=== PATIENT | male | born 1985 | race Caucasian/White ===

== ENCOUNTER 2019-10-28 18:04 | Inpatient (IN) | payer OTHER ==
[2019-10-28 18:37] VITALS: BMI 25.5
--- NOTE | 2019-10-28 22:41 | HP ---
COWS - Scale Resting Pulse: 0= [place] 80 or Below Sweatin=Flushed/Facial Moisture Restless Observation: 0= Sits Still Pupil Size: 0= Normal to Room Light Bone or Joint Aches: 4=Acute Joint/Muscle Pain Runny Nose/ Eye Tearin= Runny Nose/Eyes GI Upset > 30mins: 3= Vomiting/Diarrhea (vomiting x 5, diarrhea x 6) Tremor Observation: 4= Gross Tremor/Twitching Yawning Observation: 1= 1-2x During Session Anxiety or Irritability: 4=Extreme Anxiety Goose Flesh Skin: 3=Piloerection COWS Score: 23 CIWA Score Nausea/Vomitin (vomiting x 5) Muscle Tremors: 5 Anxiety: 3 Agitation: 3 Paroxysmal Sweats: 3 Orientation: 2-Disoriented Date<2 days Tacttile Disturbances: 0-None Auditory Disturbances: 0-None Visual Disturbances: 0-None Headache: 1-Very Mild CIWA-Ar Total Score: 20 - Admission Criteria OASAS Guidelines: Admission for Medically Managed Detox: Requires at least one of the followin. CIWA greater than 12 2. Seizures within the past 24 hours 3. Delirium tremens within the past 24 hours 4. Hallucinations within the past 24 hours 5. Acute intervention needed for co occurring medical disorder 6. Acute intervention needed for co occurring psychiatric disorder 7. Severe withdrawal that cannot be handled at a lower level of care (continued vomiting, continued diarrhea, abnormal vital signs) requiring intravenous medication and/or fluids 8. Admission ROS [facility] Chief Complaint: Heroin, benzodiazepine and alcohol withdrawal symptoms Allergies/Adverse Reactions: Allergies Allergy/AdvReac Type Severity Reaction Status Date / Time No Known Allergies Allergy Verified 10/28/19 22:34 History of Present Illness: 34 years old male with a long history of alcohol dependence, 10 years of benzodiazepine dependence and 12 years of heroin dependence is seeking admission to detox. This is his 1st admission to [facility] and his last detox was at [facility]. He uses 20 bags of heroin , drinks 2-3 pints of vodka and takes 7mg -10mg of Xanax or klonopin daily. He reports medical history of Hep. C, psych history of depression, anxiety and ADHD. He denies suicide attempt / suicidal ideation at this time. He is unemployed, lives alone and denies legal issues. 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 He was referred from [facility]. Exam Limitations: Clinical Condition (actute withdrawal), Intoxication - Ebola screening Have you traveled outside of the country in the last 21 days: No Have you had contact with anyone from an Ebola affected area: No Have you been sick,other than usual withdrawal symptoms: No Do you have a fever: No - Review of Systems Constitutional: Chills, Loss of Appetite, Malaise, Night Sweats, Changes in sleep EENT: reports: Nose Congestion Respiratory: reports: No Symptoms reported Cardiac: reports: No Symptoms Reported GI: reports: Diarrhea, Nausea, Poor Fluid Intake, Vomiting, Abdominal cramping : reports: No Symptoms Reported Musculoskeletal: reports: No Symptoms Reported, Back Pain, Joint Pain, Muscle P ain Integumentary: reports: Dryness, Flushing Neuro: reports: Headache, Tremors Endocrine: reports: No Symptoms Reported Hematology: reports: No Symptoms Reported Psychiatric: reports: Agitated, Anxious, Depressed Other Systems: Reviewed and Negative Patient History - Patient Medical History Hx Anemia: No Hx Asthma: No Hx Chronic Obstructive Pulmonary Disease (COPD): No Hx Cancer: No Hx Cardiac Disorders: No Hx Congestive Heart Failure: No Hx Hypertension: No Hx Hypercholesterolemia: No Hx Pacemaker: No HX Cerebrovascular Accident: No Hx Seizures: No Hx Dementia: No Hx Diabetes: No Hx Gastrointestinal Disorders: No Hx Liver Disease: No Hx Genitourinary Disorders: No Hx Sexually Transmitted Disorders: No Hx Renal Disease (ESRD): No Hx Thyroid Disease: No Hx Human Immunodeficiency Virus (HIV): No (Negative 2019) Hx Hepatitis C: Yes Hx Depression: Yes (+ anxiety + ADHD) Hx Suicide Attempt: No (Denies suicidal ideation at this time) Hx Bipolar Disorder: Yes Hx Schizophrenia: No - Patient Surgical History Past Surgical History: Yes Hx Neurologic Surgery: No Hx Cataract Extraction: No Hx Cardiac Surgery: No Hx Lung Surgery: Yes (Pneumothorax 2015) Hx Abdominal Surgery: No Hx Appendectomy: No Hx Cholecystectomy: No Hx Genitourinary Surgery: No Hx Orthopedic Surgery: No Anesthesia Reaction: No - PPD History Previous Implant?: Yes Documented Results: Negative w/o proof Implanted On Prior R Admission?: No PPD to be Administered?: Yes - Reproductive History Patient is a Female of Child Bearing Age (11 -55 yrs old): No (Male) - Smoking Cessation Smoking history: Former smoker Have you smoked in the past 12 months: No Hx Chewing Tobacco Use: No Initiated information on smoking cessation: No - Substance & Tx. History Hx Alcohol Use: Yes Hx Substance Use: Yes Substance Use Type: Alcohol, Cocaine, Heroin, Marijuana Hx Substance Use Treatment: Yes ([facility].) - Substances abused Alcohol Substance route: Oral Frequency: Daily Amount used: 2-3 pints of vodka Age of first use: 7 Date of last use: 10/28/19 Alprazolam (Xanax) Substance route: Oral Frequency: Daily Amount used: 7mg - 10mg Age of first use: 24 Date of last use: 10/27/19 Heroin Substance route: Injection Frequency: Daily Amount used: 20 bags Age of first use: 24 Date of last use: 10/28/19 Admission Physical Exam [facility] - Vital Signs Vital Signs: Vital Signs - 24 hr 10/28/19 18:35 Temperature 97.5 F L Pulse Rate 70 Respiratory 18 Rate Blood Pressure 117/81 - Physical General Appearance: Yes: Severe Distress, Tremorous, Irritable, Sweating, Anxious HEENTM: Yes: Within Normal Limits Respiratory: Yes: Lungs Clear, Normal Breath Sounds, No Respiratory Distress Neck: Yes: Within Normal Limits Breast: Yes: Breast Exam Deferred Cardiology: Yes: Within Normal Limits Abdominal: Yes: Normal Bowel Sounds Genitourinary: Yes: Within Normal Limits Back: Yes: Normal Inspection Musculoskeletal: Yes: Back pain, Muscle Pain Extremities: Yes: Tremors, Erythema (face) Neurological: Yes: Within Normal Limits Integumentary: Yes: Warm, Rash (face and bilateral hands and legs) Lymphatic: Yes: Within Normal Limits Cleared for Admission [facility] - Detox or Rehab [facility] Level of Care: Medically Managed Detox Regimen/Protocol: Methadone/Valium Claeared for Rehab Admission: No Breathalyzer - Breathalyzer Breathalyzer: 0 Urine Drug Screen - Test Device Lot number: [id number] Expiration date: 09/20/21 - Control Is test valid?: Yes - Results Drug screen NEGATIVE: No Urine drug screen results: THC-Marijuana, JOE-Cocaine, FEN-Fentanyl, MOP- Opiates, MTD-Methadone, BZO-Benzodiazepines Inpatient Rehab Admission - Rehab Decision to Admit Inpatient rehab admission?: No
[2019-10-28] MEDS ORDERED: ACETAMINOPHEN 325 MG TABLET (FP) PO PRN (22:50)
[2019-10-28] MEDS ORDERED: METHADONE HCL 10 MG TABLET (FOR DETOX USE ONLY) PO ONE (22:50)
[2019-10-28] MEDS ORDERED: NICOTINE POLACRILEX 2 MG GUM BUC PRN (22:50)
[2019-10-28] MEDS ORDERED: MENTHOL/PHENOL 1 EACH UD MM PRN (22:50)
[2019-10-28] MEDS ORDERED: MAGNESIUM HYDROX 2400MG/30ML ORAL SUSPENSION 30 ML CUP PO PRN (22:50)
[2019-10-28] MEDS ORDERED: ONDANSETRON *ODT* 4 MG TABLET SL PRN (22:50)
[2019-10-28] MEDS ORDERED: MAG HYDROX/AL HYDROX/SIMETH 30 ML UNIT-DOSE CUP PO PRN (22:50)
[2019-10-28] MEDS ORDERED: MAGNESIUM CITRATE 300 ML BOTTLE PO PRN (22:50)
[2019-10-28] MEDS: diazePAM 5 MG TABLET PO SCH (23:42)
[2019-10-29] MEDS: diazePAM 5 MG TABLET PO SCH ×4 (05:12→22:03)
--- NOTE | 2019-10-29 09:02 | EKG ---
Test Reason : Blood Pressure : / mmHG Vent. Rate : 055 BPM Atrial Rate : 055 BPM P-R Int : 174 ms QRS Dur : 124 ms QT Int : 418 ms P-R-T Axes : 026 040 034 degrees QTc Int : 399 ms SINUS BRADYCARDIA NON-SPECIFIC INTRA-VENTRICULAR CONDUCTION DELAY NO PREVIOUS ECGS AVAILABLE Confirmed by AGUSTIN VALLECILLO MD ([id number]) on 10/29/2019 9:01:33 AM Referred By: Confirmed By:AGUSTIN VALLECILLO MD
[2019-10-29] MEDS ORDERED: METHADONE HCL 5 MG TABLET (FOR DETOX USE ONLY) ONE (09:20)
[2019-10-29] MEDS ORDERED: METHADONE HCL 10 MG TABLET (FOR DETOX USE ONLY) ONE (09:20)
[2019-10-29] MEDS ORDERED: METHADONE (DETOX) 20 MG, METHADONE (DETOX) 5 MG PO ONE (10:00)
[2019-10-29] MEDS: NICOTINE 14 MG/24 HOURS TOPICAL PATCH TD SCH (10:22)
[2019-10-29] MEDS: PRENATAL VITAMINS W/ FOLIC ACID TABLET (FP) PO SCH (10:23)
[2019-10-29] MEDS: BISMUTH SUBSALICYLATE 524 MG/30 ML UD PO PRN (10:25)
[2019-10-29 10:39] LABS: HEMATOCRIT 33.2 % (35.4-49); HEMOGLOBIN 11.1 GM/dL (11.7-16.9); MCH 28.3 pg (25.7-33.7); MCHC 33.4 g/dl (32.0-35.9); MEAN CELL VOLUME 84.6 fl (80-96); PLATELET COUNT 250 K/MM3 (134-434); RBC 3.92 M/mm3 (4.00-5.60); RDW 13.2 % (11.9-15.9); WHITE BLOOD COUNT 4.8 K/mm3 (4.0-10.0)
[2019-10-29 11:01] LABS: ALBUMIN 3.2 g/dl (3.4-5.0); BLOOD UREA NITROGEN 16.7 mg/dL (7-18); CALCIUM 8.7 mg/dL (8.5-10.1); CREATININE 0.8 mg/dL (0.55-1.3); POTASSIUM 4.3 mmol/L (3.5-5.1)
[2019-10-29 11:04] LABS: BILIRUBIN,TOTAL 0.3 mg/dL (0.2-1); TOT PROT 6.4 g/dl (6.4-8.2)
[2019-10-29] MEDS: diazePAM 5 MG TABLET PO PRN ×3 (13:12→23:08)
[2019-10-29] MEDS: METHOCARBAMOL 500 MG TABLET PO PRN ×2 (13:13→18:47)
--- NOTE | 2019-10-29 13:39 | PN ---
[facility] CIWA - CIWA Score Nausea/Vomitin Muscle Tremors: 3 Anxiety: 3 Agitation: 3 Paroxysmal Sweats: 1-Minimal Palms Moist Orientation: 0-Oriented Tacttile Disturbances: 1-Very Mild Itch/Numbness Auditory Disturbances: 0-None Visual Disturbances: 0-None Headache: 2-Mild CIWA-Ar Total Score: 16 BHS COWS - Scale Resting Pulse: 0= [place] 80 or Below Sweatin= No chills or Flushing Restless Observation: 3= Extraneous Movement Pupil Size: 1= Pupils >than Normal Bone or Joint Aches: 2= Severe Diffuse Aches Runny Nose/ Eye Tearin= Runny Nose/Eyes GI Upset > 30mins: 3= Vomiting/Diarrhea Tremor Observation of Outstretched Hands: 2= Slight Tremor Visible Yawning Observation: 1= 1-2x During Session Anxiety or Irritability: 2=Irritable/Anxious Goose Flesh Skin: 0=Smooth Skin COWS Score: 16 [facility] Progress Note (SOAP) Subjective: alert,irritable,anxious,interrupted sleep,tremor,pain in the body and back,vomiting,diarrhea Objective: 10/29/19 13:41 Vital Signs Temperature 98.4 F 10/29/19 12:53 Pulse Rate 75 10/29/19 12:53 Respiratory Rate 17 10/29/19 12:53 Blood Pressure 111/70 10/29/19 12:53 O2 Sat by Pulse Oximetry (%) 99 10/29/19 12:53 10/29/19 13:41 Laboratory Last Values WBC 4.8 K/mm3 (4.0-10.0) 10/29/19 08:10 RBC 3.92 M/mm3 (4.00-5.60) L 10/29/19 08:10 Hgb 11.1 GM/dL (11.7-16.9) L 10/29/19 08:10 Hct 33.2 % (35.4-49) L 10/29/19 08:10 MCV 84.6 fl (80-96) 10/29/19 08:10 MCH 28.3 pg (25.7-33.7) 10/29/19 08:10 MCHC 33.4 g/dl (32.0-35.9) 10/29/19 08:10 RDW 13.2 % (11.9-15.9) 10/29/19 08:10 Plt Count 250 K/MM3 (134-434) 10/29/19 08:10 MPV 9.0 fl (7.5-11.1) 10/29/19 08:10 Sodium 142 mmol/L (136-145) 10/29/19 08:10 Potassium 4.3 mmol/L (3.5-5.1) 10/29/19 08:10 Chloride 109 mmol/L (98-107) H 10/29/19 08:10 Carbon Dioxide 28 mmol/L (21-32) 10/29/19 08:10 Anion Gap 5 MMOL/L (8-16) L 10/29/19 08:10 BUN 16.7 mg/dL (7-18) 10/29/19 08:10 Creatinine 0.8 mg/dL (0.55-1.3) 10/29/19 08:10 Est GFR (CKD-EPI)AfAm 134.14 10/29/19 08:10 Est GFR (CKD-EPI)NonAf 115.74 10/29/19 08:10 Random Glucose 100 mg/dL (74-106) 10/29/19 08:10 Calcium 8.7 mg/dL (8.5-10.1) 10/29/19 08:10 Total Bilirubin 0.3 mg/dL (0.2-1) 10/29/19 08:10 AST 21 U/L (15-37) 10/29/19 08:10 ALT 21 U/L (13-61) 10/29/19 08:10 Alkaline Phosphatase 87 U/L (45-117) 10/29/19 08:10 Total Protein 6.4 g/dl (6.4-8.2) 10/29/19 08:10 Albumin 3.2 g/dl (3.4-5.0) L 10/29/19 08:10 Syphilis Serology Non-reactive (NONREACTIVE) 10/29/19 08:10 Assessment: 10/29/19 13:42 withdrawal symptom Plan: continue detox methadone and valium regimen
--- NOTE | 2019-10-29 14:47 | EKG ---
Test Reason : Blood Pressure : / mmHG Vent. Rate : 059 BPM Atrial Rate : 059 BPM P-R Int : 170 ms QRS Dur : 126 ms QT Int : 422 ms P-R-T Axes : 030 053 045 degrees QTc Int : 417 ms SINUS BRADYCARDIA RIGHT BUNDLE BRANCH BLOCK ABNORMAL ECG WHEN COMPARED WITH ECG OF 28-OCT-2019 22:08, NO SIGNIFICANT CHANGE WAS FOUND Confirmed by AGUSTIN VALLECILLO MD ([id number]) on 10/29/2019 2:47:27 PM Referred By: Confirmed By:AGUSTIN VALLECILLO MD
--- NOTE | 2019-10-29 15:06 | CONSULT ---
[facility] Psychiatric Consult - Data Date of interview: 10/29/19 Admission source: [facility] Identifying data: Patient is a 34 year old single male, without children, unemployed, domiciled, and is supported with unemployment benefits. This is patient's first admission to [facility]. Patient admitted to for alcohol, opiate, and benzodizapine dependence. Substance Abuse History: Smoking Cessation. Smoking history: Former smoker. Have you smoked in the past 12 months: No. Hx Chewing Tobacco Use: No. Initiated information on smoking cessation: No. - Substance & Tx. History. Hx Alcohol Use: Yes. Hx Substance Use: Yes. Substance Use Type: Alcohol, Cocaine, Heroin, Marijuana. Hx Substance Use Treatment: Yes ([facility].). - Substances abused. Alcohol. Substance route: Oral. Frequency: Daily. Amount used: 2-3 pints of vodka. Age of first use: 7. Date of last use: 10/28/19. Alprazolam (Xanax). Substance route: Oral. Frequency: Daily. Amount used: 7mg - 10mg. Age of first use: 24. Date of last use: 10/27/19. Heroin. Substance route: Injection. Frequency: Daily. Amount used: 20 bags. Age of first use: 24. Date of last use: 10/28/19 Medical History: Pneumothorax 2015 Psychiatric History: Mr. Haynes reports history of three psychiatric hospitalizations at [facility] in [facility], most recently last year due to depression. Diagnosis of MDD + Anxiety disorder + PTSD. Patient is totally lost in follow up care. States that he receives psychotropic medications from detox/ rehab facilites. Mr. Haynes recently completed [facility] re[facility] last month and was treated and discharge with Effexor 300mg XL + Gabapentin 600mg TID + Adderall 30mg daily. Patient states that he has been off all medications for approximately three weeks. No reported history of suicide attempt. At present patient reports feeling anxious and sad. Physical/Sexual Abuse/Trauma History: denies. Mental Status Exam - Mental Status Exam Alert and Oriented to: Time Cognitive Function: Good Patient Appearance: Well Groomed Mood: Withdrawn Affect: Mood Congruent Patient Behavior: Fatigued, Cooperative Speech Pattern: Appropriate Voice Loudness: Normal Thought Process: Goal Oriented Thought Disorder: Not Present Hallucinations: Denies Suicidal Ideation: Denies Homicidal Ideation: Denies Insight/Judgement: Poor Sleep: Fair Appetite: Fair Muscle strength/Tone: Normal Gait/Station: Normal Psychiatric Findings - Problem List ([place] 1, 2,3) (1) Alcohol use disorder Current Visit: Yes Status: Acute (2) Cocaine dependence Current Visit: Yes Status: Acute (3) Opioid dependence Current Visit: Yes Status: Acute (4) Substance induced mood disorder Current Visit: Yes Status: Acute (5) Anxiety disorder Current Visit: Yes Status: Chronic (6) History of depression Current Visit: No Status: Chronic - Initial Treatment Plan Initial Treatment Plan: Psychoeducation provided. Detoxification in progress. Will order Gabapentin 300mg TID. Will not resume effexor at this time due to noncompliance. Patient in agreement with plan. Benefits and side effects discussed. Verbal consent given.
[2019-10-29] MEDS: IBUPROFEN 400 MG TABLET (FP) PO PRN (15:19)
[2019-10-29] MEDS: GABAPENTIN 300 MG CAPSULE PO SCH ×2 (15:25→21:43)
[2019-10-29] MEDS: cloNIDine HCL 0.1 MG TABLET PO PRN ×2 (17:19→23:09)
[2019-10-29] MEDS: ACETAMINOPHEN 325 MG TABLET (FP) PO PRN (18:45)
[2019-10-29] MEDS: THIAMINE HCL 100 MG TABLET (FP) PO SCH (21:42)
[2019-10-29] MEDS: MELATONIN 5 MG TABLETS PO SCH (21:43)
[2019-10-30] MEDS: IBUPROFEN 400 MG TABLET (FP) PO PRN ×4 (00:45→22:22)
[2019-10-30] MEDS: diazePAM 5 MG TABLET PO PRN ×4 (04:12→19:27)
[2019-10-30] MEDS: ACETAMINOPHEN 325 MG TABLET (FP) PO PRN ×3 (04:15→18:30)
[2019-10-30] MEDS: GABAPENTIN 300 MG CAPSULE PO SCH ×3 (07:06→22:17)
[2019-10-30] MEDS: diazePAM 5 MG TABLET PO SCH ×3 (07:07→22:17)
[2019-10-30] MEDS: METHOCARBAMOL 500 MG TABLET PO PRN (07:11)
[2019-10-30] MEDS ORDERED: BENZOCAINE 20 % GEL TUBE MM PRN (09:50)
[2019-10-30] MEDS ORDERED: METHADONE HCL 10 MG TABLET (FOR DETOX USE ONLY) PO ONE (10:00)
[2019-10-30] MEDS: PRENATAL VITAMINS W/ FOLIC ACID TABLET (FP) PO SCH (10:35)
[2019-10-30] MEDS: NICOTINE 14 MG/24 HOURS TOPICAL PATCH TD SCH (10:35)
[2019-10-30] MEDS: METHOCARBAMOL 750 MG TABLET PO PRN ×2 (14:16→22:21)
--- NOTE | 2019-10-30 16:35 | PN ---
S CIWA - CIWA Score Nausea/Vomitin-No Nausea/No Vomiting Muscle Tremors: 3 Anxiety: 3 Agitation: 1-Slight > Activity Paroxysmal Sweats: No Perspiration Orientation: 0-Oriented Tacttile Disturbances: 1-Very Mild Itch/Numbness Auditory Disturbances: 1-Very Mild Visual Disturbances: 0-None Headache: 0-None Present CIWA-Ar Total Score: 9 BHS COWS - Scale Resting Pulse: 0= [place] 80 or Below Sweatin= Chills/Flushing Restless Observation: 1= Difficult to Sit Still Pupil Size: 0= Normal to Room Light Bone or Joint Aches: 2= Severe Diffuse Aches Runny Nose/ Eye Tearin= None GI Upset > 30mins: 0= None Tremor Observation of Outstretched Hands: 2= Slight Tremor Visible Yawning Observation: 1= 1-2x During Session Anxiety or Irritability: 2=Irritable/Anxious Goose Flesh Skin: 0=Smooth Skin COWS Score: 9 BHS Progress Note (SOAP) Subjective: Anxious, Tremors, Anxious. Objective: Patient A & O X 3, Observed Ambulating on Detox Unit Unassisted. In No Acute Distress. 10/30/19 16:39 Vital Signs Temperature 97.1 F L 10/30/19 12:38 Pulse Rate 61 10/30/19 12:38 Respiratory Rate 17 10/30/19 12:38 Blood Pressure 109/71 10/30/19 12:38 O2 Sat by Pulse Oximetry (%) 100 10/30/19 12:38 Laboratory Tests 10/28/19 10/29/19 10/29/19 10:25 08:10 08:10 WBC 4.8 RBC 3.92 L Hgb 11.1 L Hct 33.2 L MCV 84.6 MCH 28.3 MCHC 33.4 RDW 13.2 Plt Count 250 MPV 9.0 Sodium Potassium Chloride Carbon Dioxide Anion Gap BUN Creatinine Est GFR (CKD-EPI)AfAm Est GFR (CKD-EPI)NonAf Random Glucose Calcium Total Bilirubin AST ALT Alkaline Phosphatase Total Protein Albumin Syphilis Serology Non-reactive COVID-19 (ASHISH) Not detected 10/29/19 08:10 WBC RBC Hgb Hct MCV MCH MCHC RDW Plt Count MPV Sodium 142 Potassium 4.3 Chloride 109 H Carbon Dioxide 28 Anion Gap 5 L BUN 16.7 Creatinine 0.8 Est GFR (CKD-EPI)AfAm 134.14 Est GFR (CKD-EPI)NonAf 115.74 Random Glucose 100 Calcium 8.7 Total Bilirubin 0.3 AST 21 ALT 21 Alkaline Phosphatase 87 Total Protein 6.4 Albumin 3.2 L Syphilis Serology COVID-19 (ASHISH) Lab Results noted. Assessment: 10/30/19 16:40 WITHDRAWAL SYMPTOMS. ANEMIA. Plan: Continue Detox. Increase Daily Oral Water Intake. Patient is currently receiving daily MVI containing B Vitamins and Iron while admitted for Detox.
[2019-10-30] MEDS: cloNIDine HCL 0.1 MG TABLET PO PRN (16:58)
[2019-10-30] MEDS: THIAMINE HCL 100 MG TABLET (FP) PO SCH (22:17)
[2019-10-30] MEDS: MELATONIN 5 MG TABLETS PO SCH (22:18)
[2019-10-31] MEDS: diazePAM 5 MG TABLET PO PRN ×4 (01:41→19:26)
[2019-10-31] MEDS: ACETAMINOPHEN 325 MG TABLET (FP) PO PRN ×3 (01:42→14:03)
[2019-10-31] MEDS: GABAPENTIN 300 MG CAPSULE PO SCH ×3 (05:12→22:07)
[2019-10-31] MEDS: diazePAM 5 MG TABLET PO SCH ×2 (05:12→17:00)
[2019-10-31] MEDS: IBUPROFEN 400 MG TABLET (FP) PO PRN ×3 (05:14→19:26)
[2019-10-31] MEDS: METHOCARBAMOL 750 MG TABLET PO PRN ×3 (05:17→22:10)
[2019-10-31] MEDS ORDERED: METHADONE HCL 10 MG TABLET (FOR DETOX USE ONLY) ONE (09:11)
[2019-10-31] MEDS ORDERED: METHADONE HCL 5 MG TABLET (FOR DETOX USE ONLY) ONE (09:11)
[2019-10-31] MEDS ORDERED: METHADONE (DETOX) 10 MG, METHADONE (DETOX) 5 MG PO ONE (10:00)
[2019-10-31] MEDS: PRENATAL VITAMINS W/ FOLIC ACID TABLET (FP) PO SCH (10:23)
[2019-10-31] MEDS: NICOTINE 14 MG/24 HOURS TOPICAL PATCH TD SCH (10:23)
--- NOTE | 2019-10-31 11:54 | PN ---
[facility] CIWA - CIWA Score Nausea/Vomitin-No Nausea/No Vomiting Muscle Tremors: 2 Anxiety: 1-Mildly Anxious Agitation: 1-Slight > Activity Paroxysmal Sweats: 2 Orientation: 0-Oriented Tacttile Disturbances: 0-None Auditory Disturbances: 0-None Visual Disturbances: 0-None Headache: 0-None Present CIWA-Ar Total Score: 6 BHS COWS - Scale Resting Pulse: 0= [place] 80 or Below Sweatin= Chills/Flushing Restless Observation: 0= Sits Still Pupil Size: 0= Normal to Room Light Bone or Joint Aches: 1= Mild Discomfort Runny Nose/ Eye Tearin= Nasal Congestion GI Upset > 30mins: 1= Stomach Cramp Tremor Observation of Outstretched Hands: 2= Slight Tremor Visible Yawning Observation: 0= None Anxiety or Irritability: 1=Feels Anxious/Irritable Goose Flesh Skin: 0=Smooth Skin COWS Score: 7 S Progress Note (SOAP) Subjective: Tremor, chills, body ache, a little vomiting, stomachache, interrupted sleep Objective: 10/31/19 12:29 Last Vital Signs Temp Pulse Resp BP Pulse Ox 97.5 F L 60 20 124/78 100 10/31/19 06:48 10/31/19 06:48 10/31/19 06:48 10/31/19 06:48 10/30/19 20:57 Laboratory Tests 10/28/19 10/29/19 10/29/19 10:25 08:10 08:10 WBC 4.8 RBC 3.92 L Hgb 11.1 L Hct 33.2 L MCV 84.6 MCH 28.3 MCHC 33.4 RDW 13.2 Plt Count 250 MPV 9.0 Sodium Potassium Chloride Carbon Dioxide Anion Gap BUN Creatinine Est GFR (CKD-EPI)AfAm Est GFR (CKD-EPI)NonAf Random Glucose Calcium Total Bilirubin AST ALT Alkaline Phosphatase Total Protein Albumin Syphilis Serology Non-reactive COVID-19 (ASHISH) Not detected 10/29/19 08:10 WBC RBC Hgb Hct MCV MCH MCHC RDW Plt Count MPV Sodium 142 Potassium 4.3 Chloride 109 H Carbon Dioxide 28 Anion Gap 5 L BUN 16.7 Creatinine 0.8 Est GFR (CKD-EPI)AfAm 134.14 Est GFR (CKD-EPI)NonAf 115.74 Random Glucose 100 Calcium 8.7 Total Bilirubin 0.3 AST 21 ALT 21 Alkaline Phosphatase 87 Total Protein 6.4 Albumin 3.2 L Syphilis Serology COVID-19 (ASHISH) Labs reviewed: mild anemia noted (on vitamin), mild hypoalbuminemia Assessment: 10/31/19 12:33 Withdrawal sxs Noted with mild anemia and hypoalbuminemia Plan: Continue detox Encourage PO water intake Mild anemia: Most likely due to alcoholism, continue vitamins, follow up with PCP for management Hypoalbuminemia: Encourage diet
[2019-10-31] MEDS: THIAMINE HCL 100 MG TABLET (FP) PO SCH (22:07)
[2019-10-31] MEDS: MELATONIN 5 MG TABLETS PO SCH (22:08)
[2019-11-01] MEDS: ACETAMINOPHEN 325 MG TABLET (FP) PO PRN (00:08)
[2019-11-01] MEDS: GABAPENTIN 300 MG CAPSULE PO SCH (05:17)
[2019-11-01] MEDS: METHOCARBAMOL 750 MG TABLET PO PRN (05:21)
[2019-11-01] MEDS ORDERED: diazePAM 5 MG TABLET PO ONE (06:00)
[2019-11-01] MEDS ORDERED: IBUPROFEN 400 MG TABLET (FP) PO PRN ×2 (08:30→08:39)
[2019-11-01] MEDS ORDERED: P-EPHED 60MG/TRIPROLIDI 2.5MG TABLET PO PRN (08:30)
[2019-11-01] MEDS ORDERED: hydrOXYzine PAMOATE 25 MG CAPSULE (FP) PO PRN (08:31)
[2019-11-01] MEDS ORDERED: LIDOCAINE VISCOUS 2% ORAL/TOP 100 ML BOTTLE MM PRN (08:54)
[2019-11-01] MEDS ORDERED: cloNIDine HCL 0.1 MG TABLET PO ONE (09:37)
[2019-11-01] MEDS ORDERED: METHADONE HCL 10 MG TABLET (FOR DETOX USE ONLY) PO ONE (10:00)
[2019-11-01] MEDS: PRENATAL VITAMINS W/ FOLIC ACID TABLET (FP) PO SCH (10:07)
[2019-11-01] MEDS: BISMUTH SUBSALICYLATE 524 MG/30 ML UD PO PRN (10:08)
[2019-11-01] MEDS: NICOTINE 14 MG/24 HOURS TOPICAL PATCH TD SCH (10:08)
[2019-11-01 10:20] VITALS: BP 133/80; PULSE 107; TEMP 97.5
--- NOTE | 2019-11-01 10:26 | PN ---
[facility] CIWA - CIWA Score Nausea/Vomitin-No Nausea/No Vomiting Muscle Tremors: None Anxiety: 1-Mildly Anxious Agitation: 0-Normal Activity Paroxysmal Sweats: No Perspiration Orientation: 0-Oriented Tacttile Disturbances: 0-None Auditory Disturbances: 0-None Visual Disturbances: 0-None Headache: 0-None Present CIWA-Ar Total Score: 1 S COWS - Scale Resting Pulse: 2= [place] 101-120 Sweatin= No chills or Flushing Restless Observation: 0= Sits Still Pupil Size: 0= Normal to Room Light Bone or Joint Aches: 0= None Runny Nose/ Eye Tearin= None GI Upset > 30mins: 0= None Tremor Observation of Outstretched Hands: 0= None Yawning Observation: 0= None Anxiety or Irritability: 1=Feels Anxious/Irritable Goose Flesh Skin: 0=Smooth Skin COWS Score: 3 [facility] Progress Note (SOAP) Subjective: alert,anxious Objective: 11/01/19 10:22 Vital Signs Temperature 97.5 F L 11/01/19 09:06 Pulse Rate 107 H 11/01/19 09:06 Respiratory Rate 19 11/01/19 09:06 Blood Pressure 133/80 11/01/19 09:06 O2 Sat by Pulse Oximetry (%) 98 11/01/19 09:06 Assessment: 11/01/19 10:23 patient has no withdrawal symptom Plan: stable for discharge today,follow up with after care program as arrangement
--- NOTE | 2019-11-01 10:31 | DS ---
[facility] Detox Discharge Summary Admission Date: 10/28/19 Discharge Date: 11/01/19 - History Present History: Alcohol Dependence, Cocaine Dependence, Opioid Dependence, Sedative Dependence Additional Comments: alert,oriented x 3 ambulation on the unit lung clear on auscultation bilaterally abdomen soft,no distension,no pain,no tenderness no swelling of legs no withdrawal symptom stable for discharge today follow up with after care program as arrangement patient stated he will go to [facility] methadone maintenance program near where he live left the unit in good and stable condition Pertinent Past History: depression - Physical Exam Results Vital Signs: Vital Signs Temperature 97.5 F L 11/01/19 09:06 Pulse Rate 107 H 11/01/19 09:06 Respiratory Rate 19 11/01/19 09:06 Blood Pressure 133/80 11/01/19 09:06 O2 Sat by Pulse Oximetry (%) 98 11/01/19 09:06 Pertinent Admission Physical Exam Findings: withdrawal signs and symptom Laboratory Last Values WBC 4.8 K/mm3 (4.0-10.0) 10/29/19 08:10 RBC 3.92 M/mm3 (4.00-5.60) L 10/29/19 08:10 Hgb 11.1 GM/dL (11.7-16.9) L 10/29/19 08:10 Hct 33.2 % (35.4-49) L 10/29/19 08:10 MCV 84.6 fl (80-96) 10/29/19 08:10 MCH 28.3 pg (25.7-33.7) 10/29/19 08:10 MCHC 33.4 g/dl (32.0-35.9) 10/29/19 08:10 RDW 13.2 % (11.9-15.9) 10/29/19 08:10 Plt Count 250 K/MM3 (134-434) 10/29/19 08:10 MPV 9.0 fl (7.5-11.1) 10/29/19 08:10 Sodium 142 mmol/L (136-145) 10/29/19 08:10 Potassium 4.3 mmol/L (3.5-5.1) 10/29/19 08:10 Chloride 109 mmol/L (98-107) H 10/29/19 08:10 Carbon Dioxide 28 mmol/L (21-32) 10/29/19 08:10 Anion Gap 5 MMOL/L (8-16) L 10/29/19 08:10 BUN 16.7 mg/dL (7-18) 10/29/19 08:10 Creatinine 0.8 mg/dL (0.55-1.3) 10/29/19 08:10 Est GFR (CKD-EPI)AfAm 134.14 10/29/19 08:10 Est GFR (CKD-EPI)NonAf 115.74 10/29/19 08:10 Random Glucose 100 mg/dL (74-106) 10/29/19 08:10 Calcium 8.7 mg/dL (8.5-10.1) 10/29/19 08:10 Total Bilirubin 0.3 mg/dL (0.2-1) 10/29/19 08:10 AST 21 U/L (15-37) 10/29/19 08:10 ALT 21 U/L (13-61) 10/29/19 08:10 Alkaline Phosphatase 87 U/L (45-117) 10/29/19 08:10 Total Protein 6.4 g/dl (6.4-8.2) 10/29/19 08:10 Albumin 3.2 g/dl (3.4-5.0) L 10/29/19 08:10 Syphilis Serology Non-reactive (NONREACTIVE) 10/29/19 08:10 COVID-19 ([facility]ISH) Not detected (Not Detected) 10/28/19 10:25 Vital Signs Temperature 97.5 F L 11/01/19 09:06 Pulse Rate 107 H 11/01/19 09:06 Respiratory Rate 19 11/01/19 09:06 Blood Pressure 133/80 11/01/19 09:06 O2 Sat by Pulse Oximetry (%) 98 11/01/19 09:06 - Treatment Hospital Course: Detox Protocol Followed, Detoxed Safely, Responded well, Discharged Condition Good Patient has Accepted a Rehab Referral to: declined - Medication Discharge Medications: Ambulatory Orders Gabapentin [Neurontin -] 600 mg PO TID 10/28/19 Venlafaxine HCl ER [Effexor Xr -] 300 mg PO DAILY 10/28/19 - Diagnosis (1) Opioid dependence with withdrawal Status: Acute (2) Alcohol use disorder Status: Acute (3) Cocaine dependence Status: Acute (4) Cannabis abuse Status: Acute (5) History of depression Status: Chronic - AMA Did Patient Leave Against Medical Advice: No
[2019-11-02] MEDS ORDERED: METHADONE HCL 5 MG TABLET (FOR DETOX USE ONLY) PO ONE (06:00)
== END 2019-11-01 10:22 | disposition home or self-care (01) | DRG 773 ==
LOC: YASAS 18:04 → Y6N 22:59
PROVIDERS: ADMIT Allergy & Immunology; ATTEND Allergy & Immunology
PROC: HZ2ZZZZ Detoxification Services for Substance Abuse Treatment (ICD-10-PCS; principal; 2019-10-28)
DX: F11.23 Opioid dependence with withdrawal (principal); F10.230 Alcohol dependence with withdrawal, uncomplicated; F13.20 Sedative, hypnotic or anxiolytic dependence, uncomplicated; F14.20 Cocaine dependence, uncomplicated; F12.20 Cannabis dependence, uncomplicated; F19.24 Other psychoactive substance dependence with psychoactive substance-induced mood disorder; F41.9 Anxiety disorder, unspecified; F43.10 Post-traumatic stress disorder, unspecified; E88.09 Other disorders of plasma-protein metabolism, not elsewhere classified; D64.9 Anemia, unspecified; R21 Rash and other nonspecific skin eruption; Z86.59 Personal history of other mental and behavioral disorders
CPT/HCPCS: 36415; 80053; 85027; 86780; 93005; 93010; J0735; Q0162; U0003